=== PATIENT | female | born 1955 | race American Indian/Alaskan Native ===

== ENCOUNTER 2020-09-16 04:22 | Emergency (ER) | payer MEDICARE ==
--- NOTE | 2020-09-16 04:55 | Emergency Department Report ---
ED CPR HPI - General Chief Complaint: Cardiac Arrest/CPR Stated Complaint: CARDIAC ARREST Time Seen by Provider: 09/16/20 04:49 Source: EMS - History of Present Illness Initial Comments: Patient is 64 years old long-term patient. Patient brought to the emergency room from COVID-19 floor at her long-term facility and a full cardiac arrest. EMS stated that patient rhythm was asystole in the beginning and changed 1 time to V. fib and patient received a 200 J and 300 mg of amiodarone with no improvement. Upon arrival to the ER patient is intubated with [place] airway with good breath sound on both sides. Patient has a right midline access and is being used for medication patient given epi and bicarb. ACLS protocol continued in the emergency room. Patient remained in asystole. Total resuscitation time including EMS time is more than 1 hour. Patient pronounced at 4:27 AM. No family available at this moment. For further information please refer to code sheet. MD Complaint: found unresponsive -: minute(s) (27), hour(s) (1) Place: [facility] Bystander CPR Performed: Yes Shock Advised: No Initial Findings in the Field: unresponsive ROSC in the Field: No Associated Injuries: No Treatments Prior to Arrival: intubation, defribrillated shocks # (1), epinephrine mgs # (4), sodium bicarbonate ED Review of Systems ROS: Stated complaint: CARDIAC ARREST Other details as noted in HPI Comment: Unobtainable due to pts medical conditions ED Physical Exam - General General appearance: other (CPR in progress.) - Head Head exam: Present: atraumatic - ENT ENT exam: Present: mucous membranes dry - Respiratory Respiratory exam: Present: other (No spontaneous breathing.) - Cardiovascular Cardiovascular Exam: Present: other (No heart tone.) - GI/Abdominal GI/Abdominal exam: Present: soft. Absent: distended - Extremities Exam Extremities exam: Present: normal inspection - Neurological Exam Neurological exam: Present: other (CPR in progress.) - Skin Skin exam: Present: warm Critical Care Time: Yes Critical care time in (mins) excluding proc time.: 30 Critical care attestation.: If time is entered above; I have spent that time in minutes in the direct care of this critically ill patient, excluding procedure time. ED Disposition Clinical Impression: Cardiopulmonary arrest Disposition: DC-20 Is pt being admited?: No Condition: Stable
== END 2020-09-16 11:00 ==
LOC: ED 04:22
DX: I46.9 Cardiac arrest, cause unspecified (principal)
CPT/HCPCS: 92950